=== PATIENT | female | born 1985 | race Caucasian/White ===

== ENCOUNTER 2017-01-24 06:47 | Emergency (ER) | payer SELFPAY ==
[2017-01-24 06:58] VITALS: BP 149/90; BMI 42.7
--- NOTE | 2017-01-24 07:03 | DR.EXTPAIN ---
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 Today admits to increased pain and swelliing of the knee s/p returning to work for two days. Denies erythema. Chief Complaint:: PT. C/O LEFT KNEE PAIN & SWELLING S/P FALL ON THURSDAY. - Source History Provided: Patient - Mode of arrival Mode of Arrival: Ambulatory - Timing Onset of Chief Complaint: 01/19/17 <KALANI PAUL - Last Filed: 01/24/17 07:59> PMH - PMH Past Medical History: Yes Past Medical History: Kidney Stones Past Surgical History: Yes Surgical History: - Family History History of Family Medical Conditions: No - Social History Does patient currently use any type of tobacco product: No Have you used tobacco products in the last 12 months: No Type of Tobacco Use: None Does any household member use tobacco: No Alcohol Use: None Do you use any recreational Drugs:: No Lives With: Spouse Lives Where: Home - infectious screening In the last 2 months have you had wt loss of >10#?: NO Have you had fever, night sweats or hemotysis?: No Have you traveled outside the country in the last 6 months?: No Isolation: Standard <KALANI PAUL - Last Filed: 01/24/17 07:59> ROS - Review of Systems Eyes: No Symptoms Reported ENTM: No Symptoms Reported Respiratoy: No Symptoms Reported Cardiovascular: No Symptoms Reported Gastrointestinal/Abdominal: No Symptoms Reported Genitourinary: No Symptoms Reported Neurological: No Symptoms Reported Musculoskeletal: No Symptoms Reported, Joint Pain (left knee), Knee (left knee) Integumentary: No Symptoms Reported, Bruises (left lateral malleous) Hematologic/Lymphatic: No Symptoms Reported Endocrine: No Symptoms Reported Psychiatric: No Symptoms Reported All Other Systems: Reviewed and Negative <KALANI PAUL - Last Filed: 01/24/17 07:59> PE - General Limitations: Other (pain in left knee with ambulation) General Appearance: Alert, In No Apparent Distress - Head Head Exam: Normal Inspection, Atraumatic - Eyes Eye exam: Normal Appearance, PERRL, EOMI - ENT ENT Exam: Normal Exam - Neck Neck Exam: Normal Inspection, Full ROM - Chest Chest Inspection: Normal Inspection - Respiratory Respiratory Exam: Normal Lung Sounds Bilat Respiratory Exam: Bilateral Clear to Auscultation - Cardiovascular Cardiovascular Exam: Regular Rate - Abdominal Exam Abdominal Exam: Normal Inspection, Normal Bowel Sounds Abdominal Tenderness: negative: RUQ, RLQ, LUQ, LLQ, Epigastrium, Suprapubic, Diffuse, Mild, Moderate, Severe, Other - Extremities Extremities Exam: Tenderness (left patella, lateral malleolus) - Upper Extremities Shoulder Exam: Normal Inspection Arm Exam: Normal Inspection Elbow Exam: Normal Inspection Forearm Exam: Normal Inspection, Full ROM Hand Exam: Normal Inspection Neuromotor Exam: Normal Exam Neurosensory Exam: Normal Exam Hand Tendon Exam: Flexor Digitorium Profundus (Location) Upper Ext. Vascular Exam: Capillary Refill - Lower Extremities Hip/Pelvis Exam: Normal Inspection Upper Leg Exam: Normal Inspection Knee Exam: Pain with Valgus, Laxity with Valgus Lower Leg Exam: Normal Inspection Ankle Exam: Normal Inspection Foot/Toe Exam: Normal Inspection Neurovascular/Tendon Exam: Normal Capillary Refill <KALANI PAUL - Last Filed: 01/24/17 07:59> MDM - Differential Diagnosis Differential Diagnosis: Fracture, Sprain <SHANA BHAT - Last Filed: 01/24/17 15:37> Course - Treatment Treatment: SEE ORDERS - Education/Counseling Education/Counseling: Patient, Education Educated On: Diagnosis, Needs for Follow Up <SHANA BHAT - Last Filed: 01/24/17 15:37> ROR - Labs Reviewed Laboratory Results Reviewed?: Yes Result Diagrams: 01/24/17 07:50 - XRAY XRAY Interpreted by: Radiologist XRAY Findings: REPORT DISCUSS WITH PATIENT. <SHANA BHAT - Last Filed: 01/24/17 15:37> - Labs Reviewed Laboratory: Sodium 141 mmol/L (136-145) 01/24/17 07:50 Corrected Sodium TNP 01/24/17 07:50 Potassium 3.8 mmol/L (3.5-5.1) 01/24/17 07:50 Chloride 105 mmol/L (98-107) 01/24/17 07:50 Carbon Dioxide 25.2 mmol/L (21-32) 01/24/17 07:50 BUN 16 mg/dL (7-18) 01/24/17 07:50 Creatinine 0.82 mg/dL (0.55-1.02) 01/24/17 07:50 Est GFR (MDRD) Af Amer > 60 (>60) 01/24/17 07:50 Est GFR (MDRD) Non-Af > 60 (>60) 01/24/17 07:50 Glucose 91 mg/dL (65-99) 01/24/17 07:50 Calcium 9.5 mg/dL (8.5-10.1) 01/24/17 07:50 (SHANA BHAT) <KALANI PAUL - Last Filed: 01/24/17 07:59> <SHANA BHAT - Last Filed: 01/24/17 15:37> - Diagnosis Discharge Problem: Left knee sprain Qualifiers: Encounter type: initial encounter Involved ligament of knee: unspecified ligament Qualified Code(s): S83.92XA - Sprain of unspecified site of left knee, initial encounter - Discharge Plan Disposition: 01 HOME, SELF-CARE Condition: Stable Prescriptions: Ibuprofen [Motrin Tab 800 mg] 800 mg PO DAILY PRN #20 tab PRN Reason: Pain/Inflammation Tramadol HCl 50 mg PO Q8H PRN #15 tab PRN Reason: Pain - Follow ups/Referrals Follow ups/Referrals: NFD,None [Primary Care Provider] - 3 days JASMINA JI [STAFF PHYSICIAN] - 3 days - Instructions Instructions: Knee Sprain, [id number] Additional Instructions: RETURN TO ED IF WORSE.
[2017-01-24] MEDS ORDERED: NS 100 ML IV 100 ML IV ONE (07:36)
[2017-01-24 08:07] LABS: BLOOD UREA NITROGEN 16 mg/dL (7-18); CALCIUM 9.5 mg/dL (8.5-10.1); CARBON DIOXIDE 25.2 mmol/L (21-32); CHLORIDE 105 mmol/L (98-107); CREATININE 0.82 mg/dL (0.55-1.02); GLUCOSE 91 mg/dL (65-99); SODIUM 141 mmol/L (136-145); eGFR BLACK RACES > 60 (>60); eGFR NON BLACK RACES > 60 (>60)
--- NOTE | 2017-01-24 09:59 | CT ---
History: Left knee pain, history of trauma Study: CT of the left knee prior to and after intravenous contrast Findings: The images submitted include pre contrast images is well as post contrast images including the mid 2 distal portion of the left femur and extending to the mid leg region. No fracture of the distal femur or proximal tibia is identified. No knee joint effusion is noted. There is no abnormal enhancement seen on the post-contrast examination. The superficial femoral evaristo ry popliteal artery and trifurcation vessels appear intact as visualized. No Bermudez cyst is identifie d. Impression: 1. No acute osseous abnormality is identified to suggest fracture. 2. No focal soft tissue abnormality is seen. 3. No abnormal enhancement is noted. If symptoms persist, MRI would be the exam of choice for evaluation of left knee pain. Reported By:
== END 2017-01-24 10:08 | disposition home or self-care (01) ==
LOC: ER 06:47
DX: S83.92XA Sprain of unspecified site of left knee, initial encounter (principal); W01.198A Fall on same level from slipping, tripping and stumbling with subsequent striking against other object, initial encounter; Y92.512 Supermarket, store or market as the place of occurrence of the external cause
CPT/HCPCS: 29530; 36415; 73701; 80048; 96365; 99283; A4222

== ENCOUNTER 2017-11-18 02:42 | Emergency (ER) | payer SELFPAY ==
[2017-11-18 02:47] VITALS: BP 144/90; BMI 43.5
[2017-11-18] MEDS ORDERED: TORADOL 30 MG VIAL IVP ONE (02:50)
[2017-11-18] MEDS ORDERED: NS 1000 ML 1,000 ML IV ONE (02:50)
[2017-11-18] MEDS ORDERED: NS 1000 ML 1,000 ML ONE (02:51)
[2017-11-18] MEDS ORDERED: TORADOL 30 MG VIAL ONE (02:52)
[2017-11-18 03:37] LABS: BILIRUBIN,URINE NEGATIVE (NEGATIVE); BLOOD/HEMOGLOBIN,URINE 5+ (NEGATIVE); GLUCOSE, URINE NEGATIVE (NEGATIVE); KETONES,URINE NEGATIVE (NEGATIVE); LEUKOCYTE ESTERASE ,URINE 3+ (NEGATIVE); NITRITES,URINE POSITIVE (NEGATIVE); PROTEIN,URINE 2+ (NEGATIVE); UROBILINOGEN,URINE NORMAL (NORMAL)
[2017-11-18 03:57] LABS: APPEARANCE,URINE CLOUDY (CLEAR); COLOR,URINE YELLOW (YELLOW)
[2017-11-18 03:58] LABS: BACTERIA,URINE 3+ /HPF (NEGATIVE); RBC,URINE 30-50 /HPF (NONE SEEN); SQUAMOUS EPITHELIAL CELL,UR MODERATE /HPF (NEGATIVE)
--- NOTE | 2017-11-18 04:56 | DR.GENAD ---
HPI - PCP Primary Care Physician: renard - HPI Comment HPI Comment: PATIENT IT IS A POSSIBLE KIDNEY STONE, NO DYSURIA OR HEMATURIA. NO FEVER. - Complaint/Symptoms Chief Complaint Doctors Comments: ABDOMINAL PAIN, RIGHT FLANK PAIN NOTED TODAY. Chief Complaint:: possible kidney stones right flank pain - Nurses notes reviewed Nurses Notes Review: Yes - Source History Provided: Patient - Mode of Arrival Mode of Arrival: Ambulatory - Timing Onset of Chief Complaint: 11/18/17 Came on: Suddenly - Duration Duration: Constant Duration: Days - Severity Severity: Moderate PMH - PMH Past Medical History: Yes Past Medical History: Kidney Stones Past Surgical History: Yes Surgical History: - Family History History of Family Medical Conditions: No - Social History Does patient currently use any type of tobacco product: No Have you used tobacco products in the last 12 months: No Type of Tobacco Use: None Does any household member use tobacco: No Alcohol Use: None Do you use any recreational Drugs:: No Lives With: Family Lives Where: Home - infectious screening In the last 2 months have you had wt loss of >10#?: NO Have you had fever, night sweats or hemotysis?: No Have you traveled outside the country in the last 6 months?: No Isolation: Standard ROS - Review of Systems Constitutional: Weakness, Fatigue. negative: Chills, Fever Eyes: No Symptoms Reported. negative: Eye Pain, Discharge ENTM: No Symptoms Reported. negative: Ear Pain, Nose Discharge, Nose Congestion , Throat Pain Respiratoy: negative: Productive Cough, Short of Breath, Wheezing, Hemoptysis Cardiovascular: Chest Pain PE - Vital Signs Vitals: Temperature 98.3 F Pulse Rate 103 Respiratory Rate 16 Blood Pressure [Right Arm] 138/81 Blood Pressure 144/90 O2 Sat by Pulse Oximetry 100 - General Limitations: No Limitations General Appearance: Alert - Head Head Exam: Normal Inspection - Eyes Eye exam: Normal Appearance - ENT ENT Exam: Normal External Ear Exam External Ear Exam: Normal External Inspection TM/Canal Exam: Bilateral Normal Nose Exam: Normal Nose Exam Mouth Exam: Normal Inspection Throat Exam: Normal Inspection - Neck Neck Exam: Normal Inspection - Chest Chest Inspection: Symmetric Chest Wall Rise - Respiratory Respiratory Exam: Normal Lung Sounds Bilat Respiratory Exam: Bilateral Clear to Auscultation - Cardiovascular Cardiovascular Exam: Regular Rate, Normal Rhythm, Normal Heart Sounds - Abdominal Exam Abdominal Exam: Normal Bowel Sounds, Soft. negative: Tenderness - Extremities Extremities Exam: Normal Inspection - Back Back Exam: (R) CVA Tenderness, (L) CVA Tenderness - Neurologic Neurological Exam: Alert, Oriented X3 - Psychiatric Psychiatric Exam: Anxious - Skin Skin Exam: Erythema MDM - Differential Diagnosis Differential Diagnosis: UTI, KIDNEY STONE, BACK PAIN, ABD PAIN Course - Treatment Treatment: SEE ORDERS. - Education/Counseling Education/Counseling: Patient, Education Educated On: Diagnosis, Needs for Follow Up ROR - Labs Reviewed Laboratory Results Reviewed?: Yes Laboratory: 11/18/17 03:23 Urine,Clean Catch Urine Culture - Final Escherichia Coli Specimen Type Clean catch urine 11/18/17 03:23 Urine Color Yellow (YELLOW) 11/18/17 03:23 Urine Appearance Cloudy (CLEAR) 11/18/17 03:23 Urine pH 5.0 (5.0 - 8.0) 11/18/17 03:23 Ur Specific [place] 1.025 (1.000-1.030) 11/18/17 03:23 Urine Protein 2+ (NEGATIVE) 11/18/17 03:23 Urine Glucose (UA) Negative (NEGATIVE) 11/18/17 03:23 Urine Ketones Negative (NEGATIVE) 11/18/17 03:23 Urine Occult Blood 5+ (NEGATIVE) 11/18/17 03:23 Urine Nitrite Positive (NEGATIVE) 11/18/17 03:23 Urine Bilirubin Negative (NEGATIVE) 11/18/17 03:23 Urine Urobilinogen Normal (NORMAL) 11/18/17 03:23 Ur Leukocyte Esterase 3+ (NEGATIVE) 11/18/17 03:23 Urine RBC 30-50 /HPF (NONE SEEN) 11/18/17 03:23 Urine WBC 30-50 /HPF (NONE SEEN) 11/18/17 03:23 Ur Squamous Epith Cells Moderate /HPF (NEGATIVE) 11/18/17 03:23 Urine Bacteria 3+ /HPF (NEGATIVE) 11/18/17 03:23 Ur Culture Indicated? Yes/culture set up 11/18/17 03:23 - Diagnosis Discharge Problem: Kidney stone, UTI (urinary tract infection) Back pain Qualifiers: Back pain location: low back pain Chronicity: acute Back pain laterality: bilateral Sciatica presence: without sciatica Qualified Code(s): M54.5 - Low back pain - Discharge Plan Disposition: 01 HOME, SELF-CARE Condition: Stable Prescriptions: Sulfamethoxazole-Trimethoprim [BACTRIM DS TAB 800/160 MG *] 1 tab PO BID #20 tab Tramadol HCl 50 mg PO Q8H #20 tablet - Follow ups/Referrals Follow ups/Referrals: AMARA RIVERA [Primary Care Provider] - 2 days DIRK RICCI [CONSULTING PHYSICIAN] - 2 days - Instructions Instructions: Kidney Stones, [id number], Urinary Tract Infection, Adult, Easy -to-Read, Back Pain, Adult, [id number] Additional Instructions: RETURN TO ED IF WORSE.
[2017-11-18] MEDS ORDERED: ROCEPHIN 1 GM IV PREMIX 1 GM/50 ML IV.SOLN. IV ONE ×2 (04:59→05:20)
[2017-11-18] MEDS ORDERED: OFIRMEV IV 1000 MG VIAL 1,000 MG/100 ML VIAL IV ONE (05:02)
[2017-11-18] MEDS ORDERED: ZOFRAN INJ 4 MG VIAL IVP ONE (05:26)
[2017-11-18] MEDS ORDERED: MORPHINE SULFATE INJ 4 MG IVP ONE (05:26)
[2017-11-18] MEDS ORDERED: MORPHINE SULFATE INJ 4 MG ONE (05:27)
[2017-11-18] MEDS ORDERED: ZOFRAN INJ 4 MG VIAL ONE (05:27)
== END 2017-11-18 06:42 | disposition home or self-care (01) ==
LOC: ER 02:42
DX: N20.0 Calculus of kidney (principal); N39.0 Urinary tract infection, site not specified; M54.5 Low back pain; B96.20 Unspecified Escherichia coli [E. coli] as the cause of diseases classified elsewhere
CPT/HCPCS: 74176; 81001; 87086; 87088; 87186; 96365; 96374; 96375; 99282; 99283; A4222; J0696; J1885; J2270; J2405

== ENCOUNTER 2019-01-31 16:38 | Observation (INO) ==
[2019-01-31 16:42] VITALS: BMI 35.3
--- NOTE | 2019-01-31 18:34 | ED.ABDFE ---
HPI Time Seen Time Seen by Provider: 01/31/19 18:34 PCP Primary Care Physician: UTE HPI Comment HPI Comment: THIS PATIENT IS A 33 YEAR OLD FEMALE WHO IS IN THE ER WITH RIGHT UPPER QUADRANT ABDOMINAL PAIN WITH NAUSEA AND VOMITTING. PAIN STARTED LAST NIGHT AND IS GETTING WORSE. PATIENT NOT HOLDING DOWN FLUID, FOOD, OR MEDICATION. DENIES FEVER OR DYSURIA. THE PAIN LEVEL IS 7/10 CURRENTLY BUT HAS BEEN HIGHER AT HOME. PAIN IS NON RADIATING AND BECAUSE OF THE NAUSEA AND VOMITTING THERE IS NO RELIEVING FACTOR RIGHT NOW. Complaint Doctors Chief Complaint Comments: RIGHT UPPER QUADRANT PAIN THAT STARTED LAST NIGHT WITH NAUSEA AND VOMITTING. Chief Complaint:: PT. C/O RUQ PAIN. PAIN BEGAN LAST NIGHT. PT. ALSO C/O N/V. Reviewed Nurses Notes Review: Yes Source History Provided: Patient Mode of arrival Mode of Arrival: Ambulatory Timing Onset of Chief Complaint: 01/30/19 Came on: Suddenly Duration Since Onset: Constant Duration: Days Location Location: RUQ Severity Severity: Moderate Quality Quality: Sharp PMH PMH Past Medical History: Yes Past Medical History: Kidney Stones Past Surgical History: Yes Surgical History: No History, and Weight Loss Surgery Family History History of Family Medical Conditions: No Social History Does patient currently use any type of tobacco product: No Have you used tobacco products in the last 12 months: No Type of Tobacco Use: None Does any household member use tobacco: No Alcohol Use: None Do you use any recreational Drugs:: No Lives With: Spouse Lives Where: Home infectious screening In the last 2 months have you had wt loss of >10#?: NO Have you had fever, night sweats or hemotysis?: No Have you traveled outside the country in the last 6 months?: No Isolation: Standard ROS Review of Systems Constitutional: See HPI; negative Weakness and Fatigue Eyes: No Symptoms Reported and See HPI; negative Eye Pain, Discharge and Photophobia ENTM: No Symptoms Reported and See HPI; negative Ear Pain, Nose Discharge, Nose Congestion and Throat Pain Respiratoy: No Symptoms Reported and See HPI; negative Moist Cough, Short of Breath and Wheezing Cardiovascular: No Symptoms Reported and See HPI; negative Chest Pain, Edema and Palpitations Gastrointestinal/Abdominal: See HPI, Abdominal Pain, Nausea and Vomiting; neg ative Constipation and Diarrhea Genitourinary: No Symptoms Reported and See HPI; negative Dysuria, Frequency and Hematuria Neurological: See HPI and Headache; negative Weakness and Dizziness Musculoskeletal: No Symptoms Reported and See HPI Integumentary: No Symptoms Reported and See HPI; negative Change in Color, Rash and Juandice Hematologic/Lymphatic: No Symptoms Reported and See HPI Endocrine: No Symptoms Reported and See HPI Psychiatric: No Symptoms Reported and See HPI All Other Systems: Reviewed and Negative PE Vital Signs Vitals: Temperature 98.6 F Pulse Rate [Left Radial] 56 Pulse Rate 68 Respiratory Rate 18 Blood Pressure [Left Arm] 115/55 Blood Pressure [Right Arm] 161/88 Blood Pressure 115/60 O2 Sat by Pulse Oximetry 98 General Limitations: No Limitations General Appearance: Alert and In No Apparent Distress Head Head Exam: Normal Inspection Eyes Eye exam: Normal Appearance and PERRL; negative Scleral Icterus and Conjunctival Injection ENT ENT Exam: Normal Exam, Normal Oropharynx, Normal External Ear Exam and TM's Normal Bilaterally Neck Neck Exam: Normal Inspection and Trachea Midline; negative Tenderness Chest Chest Inspection: Normal Inspection and Symmetric Chest Wall Rise; negative Tenderness Respiratory Respiratory Exam: Normal Lung Sounds Bilat; negative Accessory Muscle Use, Chest Wall Tenderness and Respiratory Distress Respiratory Exam: Bilateral: Clear to Auscultation Cardiovascular Cardiovascular Exam: Regular Rate, Normal Rhythm and Normal Heart Sounds; negative Systolic Murmur and Diastolic Murmur Abdominal Exam Abdominal Exam: Normal Bowel Sounds, Soft and Tenderness Abdominal Tenderness: Diffuse and Moderate Rectal Rectal Exam: Deferred Back Back Exam: Normal Inspection Extremeties Extremities Exam: Normal Inspection External Exam: Female: Deferred : Speculum Exam (Female): Deferred : Bimanual Exam (female): Deferred Neurologic Neurological Exam: Alert and Oriented X3; negative Motor Sensory Deficit Psychiatric Psychiatric Exam: Normal Affect and Normal Mood Skin Skin Exam: Warm, Dry and Intact MDM Differential Diagnosis Differential Diagnosis- Considerations may include:: Bowel Obstruction, Cholelethiasis, Diverticular disease, Gastritus/PUD, Urinary tract infection and Urolithiasis COURSE Treatment Treatment: SEE ORDERS Education/Counseling Education/Counseling: Patient Educated On: Diagnosis ROR Labs Reviewed Laboratory Results Reviewed?: Yes Result Diagrams: 02/01/19 04:55 02/02/19 04:32 Laboratory: WBC 6.3 X10^3/uL (3.6-10.0) 02/01/19 04:55 RBC 4.07 X10^6/uL (3.5-5.4) 02/01/19 04:55 Hgb 12.5 g/dL (12.0-16.0) 02/01/19 04:55 Hct 36.8 % (36.0-47.0) 02/01/19 04:55 MCV 90.4 fL (80.0-100.0) 02/01/19 04:55 MCH 30.7 pg (27.0-34.0) 02/01/19 04:55 MCHC 34.0 g/dL (33.0-35.0) 02/01/19 04:55 RDW 13.1 % (11.6-16.5) 02/01/19 04:55 Plt Count 276 X10^3/uL (150.0-450.0) 02/01/19 04:55 MPV 8.5 fL (7.4-11.0) 02/01/19 04:55 Neut % (Auto) 62.3 % (42.0-75.0) 02/01/19 04:55 Lymph % (Auto) 30.3 % (21.0-51.0) 02/01/19 04:55 [place] % (Auto) 5.5 % (0.0-13.0) 02/01/19 04:55 Eos % (Auto) 1.3 % (0.9-2.9) 02/01/19 04:55 Baso % (Auto) 0.6 % (0.2-1.0) 02/01/19 04:55 Neut # (Auto) 3.9 x10^3/uL (2.2-4.8) 02/01/19 04:55 Lymph # (Auto) 1.9 X10^3/uL (1.3-2.9) 02/01/19 04:55 [place] # (Auto) 0.4 x10^3/uL (0.3-0.8) 02/01/19 04:55 Eos # (Auto) 0.1 x10^3/uL (0.0-0.2) 02/01/19 04:55 Baso # (Auto) 0.0 X10^3/uL (0.0-0.1) 02/01/19 04:55 Absolute Nucleated RBC 0.1 /100WBC 02/01/19 04:55 Sodium 136 mmol/L (136-145) 02/02/19 04:32 Corrected Sodium 138 mmol/L (136-145) 02/02/19 04:32 Potassium 3.8 mmol/L (3.5-5.1) 02/02/19 04:32 Chloride 103 mmol/L (98-107) 02/02/19 04:32 Carbon Dioxide 22.8 mmol/L (21-32) 02/02/19 04:32 BUN 6 mg/dL (7-18) L 02/02/19 04:32 Creatinine 0.72 mg/dL (0.55-1.02) 02/02/19 04:32 Est GFR (MDRD) Af Amer > 60 (>60) 02/02/19 04:32 Est GFR (MDRD) Non-Af > 60 (>60) 02/02/19 04:32 Glucose 195 mg/dL (65-99) H 02/02/19 04:32 Calcium 8.8 mg/dL (8.5-10.1) 02/02/19 04:32 Corrected Calcium 9.7 mg/dL (8.5-10.1) 02/02/19 04:32 Total Bilirubin 0.70 mg/dL (0.2-1.0) 02/02/19 04:32 AST 68 Units/L (15-37) H 02/02/19 04:32 ALT 86 Units/L (12-78) H 02/02/19 04:32 Alkaline Phosphatase 125 Units/L (46-116) H 02/02/19 04:32 Total Protein 6.4 g/dL (6.4-8.2) 02/02/19 04:32 Albumin 2.9 g/dL (3.4-5.0) L 02/02/19 04:32 Globulin 3.5 g/dL (2.5-4.5) 02/02/19 04:32 Albumin/Globulin Ratio 0.8 Ratio (1.1-2.1) L 02/02/19 04:32 Amylase 29 Units/L (25-115) 02/01/19 04:55 Lipase 109 Units/L (73-393) 02/01/19 04:55 HCG, Qual Negative <10 mIU/mL 02/01/19 04:55 Specimen Type Clean catch urine 01/31/19 18:33 Urine Color [place] (YELLOW) 01/31/19 18:33 Urine Appearance Clear (CLEAR) 01/31/19 18:33 Urine pH 6.0 (5.0 - 8.0) 01/31/19 18:33 Ur Specific [place] 1.015 (1.000-1.030) 01/31/19 18:33 Urine Protein 1+ (NEGATIVE) 01/31/19 18:33 Urine Glucose (UA) Negative (NEGATIVE) 01/31/19 18:33 Urine Ketones Negative (NEGATIVE) 01/31/19 18:33 Urine Occult Blood 1+ (NEGATIVE) 01/31/19 18:33 Urine Nitrite Negative (NEGATIVE) 01/31/19 18:33 Urine Bilirubin 2+ (NEGATIVE) 01/31/19 18:33 Urine Urobilinogen 3+ (NORMAL) 01/31/19 18:33 Ur Leukocyte Esterase 1+ (NEGATIVE) 01/31/19 18:33 Urine RBC 0-2 /HPF (NONE SEEN) 01/31/19 18:33 Urine WBC 0-2 /HPF (NONE SEEN) 01/31/19 18:33 Ur Squamous Epith Cells Moderate /HPF (NEGATIVE) 01/31/19 18:33 Urine Bacteria 2+ /HPF (NEGATIVE) 01/31/19 18:33 Ur Culture Indicated? No/not indicated 01/31/19 18:33 Tissue Pathology To follow 02/01/19 16:51 XRAY XRAY Interpreted by: Radiologist XRAY Findings: ULTRASOUND GALLBLADDER REPORT NOTED AND DISCUSSED WITH PATIENT Opioid Opioid Risk Tool Age (Lobo box if 16-45): Yes Total: 1 Total Score Risk Category: Low Risk Copyright: Teofilo TRINH predicting aberrant behaviors Management Prescription drug monitoring program results: PDMP was not reviewed Diagnosis Discharge Problem: Abdominal pain, Disease of gallbladder Instructions Instructions: Laparoscopic Cholecystectomy, Care After Pain Medicine Instructions, [id number] Forms: Excuse From Work or School Patient Portal
[2019-01-31 18:49] LABS: BILIRUBIN,URINE 2+ (NEGATIVE); BLOOD/HEMOGLOBIN,URINE 1+ (NEGATIVE); GLUCOSE, URINE NEGATIVE (NEGATIVE); KETONES,URINE NEGATIVE (NEGATIVE); LEUKOCYTE ESTERASE ,URINE 1+ (NEGATIVE); NITRITES,URINE NEGATIVE (NEGATIVE); PROTEIN,URINE 1+ (NEGATIVE); UROBILINOGEN,URINE 3+ (NORMAL)
[2019-01-31 18:56] LABS: BASOPHILS % (AUTO) 0.6 % (0.2-1.0); EOSINOPHILS # (AUTO) 0.1 x10^3/uL (0.0-0.2); EOSINOPHILS % (AUTO) 0.8 % (0.9-2.9); HEMATOCRIT 37.2 % (36.0-47.0); HEMOGLOBIN 12.7 g/dL (12.0-16.0); LYMPHOCYTES # (AUTO) 1.4 X10^3/uL (1.3-2.9); LYMPHOCYTES % (AUTO) 18.9 % (21.0-51.0); MEAN CORPUSCULAR HEMOGLOBIN 30.6 pg (27.0-34.0); MEAN CORPUSCULAR HGB CONC 34.1 g/dL (33.0-35.0); MEAN CORPUSCULAR VOLUME 89.6 fL (80.0-100.0); MEAN PLATELET VOLUME 7.9 fL (7.4-11.0); MONOCYTES # (AUTO) 0.3 x10^3/uL (0.3-0.8); MONOCYTES % (AUTO) 4.3 % (0.0-13.0); NEUTROPHILS # (AUTO) 5.4 x10^3/uL (2.2-4.8); NEUTROPHILS % (AUTO) 75.4 % (42.0-75.0); PLATELET COUNT 309 X10^3/uL (150.0-450.0); RED BLOOD COUNT 4.15 X10^6/uL (3.5-5.4); WHITE BLOOD COUNT 7.2 X10^3/uL (3.6-10.0)
[2019-01-31 18:59] LABS: APPEARANCE,URINE CLEAR (CLEAR); COLOR,URINE AMBER (YELLOW)
[2019-01-31 19:00] LABS: BACTERIA,URINE 2+ /HPF (NEGATIVE); RBC,URINE 0-2 /HPF (NONE SEEN); SQUAMOUS EPITHELIAL CELL,UR MODERATE /HPF (NEGATIVE)
[2019-01-31 19:11] LABS: ALANINE AMINOTRANSFERASE 111 Units/L (12-78); ALBUMIN 3.8 g/dL (3.4-5.0); ALKALINE PHOSPHATASE 144 Units/L (46-116); AMYLASE 32 Units/L (25-115); ASPARTATE AMINO TRANSFERASE 143 Units/L (15-37); CALCIUM 9.6 mg/dL (8.5-10.1); CARBON DIOXIDE 27.7 mmol/L (21-32); CHLORIDE 103 mmol/L (98-107); CREATININE 0.95 mg/dL (0.55-1.02); LIPASE 167 Units/L (73-393); SODIUM 139 mmol/L (136-145); TOTAL PROTEIN 7.4 g/dL (6.4-8.2); eGFR NON BLACK RACES > 60 (>60)
[2019-01-31] MEDS ORDERED: NS 1000 ML 1,000 ML ONE (19:14)
[2019-01-31] MEDS ORDERED: DEMEROL INJ ONE (19:15)
[2019-01-31] MEDS ORDERED: ZOFRAN INJ 4 MG VIAL ONE ×2 (19:15→21:27)
[2019-01-31 19:24] LABS: BLOOD UREA NITROGEN 10 mg/dL (7-18)
[2019-01-31] MEDS ORDERED: DEMEROL INJ IVP ONE (19:31)
[2019-01-31] MEDS ORDERED: ZOFRAN INJ 4 MG VIAL IVP ONE ×2 (19:31→20:41)
[2019-01-31] MEDS ORDERED: NS 1000 ML 1,000 ML IV ONE (19:31)
[2019-01-31] MEDS ORDERED: DILAUDID INJ IVP ONE (20:43)
[2019-01-31] MEDS ORDERED: DILAUDID INJ ONE (21:27)
--- NOTE | 2019-01-31 23:01 | US ---
Gallbladder sonogram Indication:Right upper quadrant pain Comparison: None available Technique: Multiple vásquez scale and color flow Doppler images of the right upper quadrant were obtained. Findings: There is questionable layering debris/sludge within the gallbladder lumen. No gallstone is identified. Gallbladder wall thickness is within normal limits. No pericholecystic fluid. No reported sonographic Jay sign. The common bile duct measures 3 mm. No intrahepatic bile duct dilatation identified. No focal hepatic lesion or abnormal color Doppler flow within the liver. IMPRESSION: Questionable gallbladder sludge without cholelithiasis or sonographic evidence of acute cholecystitis. Reported By:
[2019-02-01] MEDS ORDERED: DILAUDID INJ IVP PRN ×3 (00:48→17:34)
[2019-02-01] MEDS ORDERED: ZOFRAN INJ 4 MG VIAL IVP PRN ×2 (00:49→17:34)
[2019-02-01] MEDS ORDERED: BENADRYL INJ 50 MG VIAL IVP ONE (01:02)
[2019-02-01] MEDS ORDERED: BENADRYL INJ 50 MG VIAL ONE (01:03)
[2019-02-01] MEDS: NS 1000 ML 1,000 ML IV SCH ×3 (01:32→16:28)
[2019-02-01 05:32] LABS: BASOPHILS % (AUTO) 0.6 % (0.2-1.0); EOSINOPHILS # (AUTO) 0.1 x10^3/uL (0.0-0.2); EOSINOPHILS % (AUTO) 1.3 % (0.9-2.9); HEMATOCRIT 36.8 % (36.0-47.0); HEMOGLOBIN 12.5 g/dL (12.0-16.0); LYMPHOCYTES # (AUTO) 1.9 X10^3/uL (1.3-2.9); LYMPHOCYTES % (AUTO) 30.3 % (21.0-51.0); MEAN CORPUSCULAR HEMOGLOBIN 30.7 pg (27.0-34.0); MEAN CORPUSCULAR VOLUME 90.4 fL (80.0-100.0); MEAN PLATELET VOLUME 8.5 fL (7.4-11.0); MONOCYTES # (AUTO) 0.4 x10^3/uL (0.3-0.8); MONOCYTES % (AUTO) 5.5 % (0.0-13.0); NEUTROPHILS # (AUTO) 3.9 x10^3/uL (2.2-4.8); NEUTROPHILS % (AUTO) 62.3 % (42.0-75.0); PLATELET COUNT 276 X10^3/uL (150.0-450.0); RED BLOOD COUNT 4.07 X10^6/uL (3.5-5.4); RED CELL DISTRIBUTION WIDTH 13.1 % (11.6-16.5); WHITE BLOOD COUNT 6.3 X10^3/uL (3.6-10.0)
[2019-02-01 05:41] LABS: ALANINE AMINOTRANSFERASE 123 Units/L (12-78); ALBUMIN 3.5 g/dL (3.4-5.0); ALKALINE PHOSPHATASE 148 Units/L (46-116); ASPARTATE AMINO TRANSFERASE 135 Units/L (15-37); BLOOD UREA NITROGEN 3 mg/dL (7-18); CALCIUM 9.4 mg/dL (8.5-10.1); CARBON DIOXIDE 24.2 mmol/L (21-32); CHLORIDE 105 mmol/L (98-107); CREATININE 0.83 mg/dL (0.55-1.02); LIPASE 109 Units/L (73-393); SODIUM 139 mmol/L (136-145); TOTAL PROTEIN 7.2 g/dL (6.4-8.2); eGFR NON BLACK RACES > 60 (>60)
[2019-02-01] MEDS ORDERED: NS IRRIGATION 3000 ML ONE (09:29)
[2019-02-01] MEDS ORDERED: STERILE WATER IRRIGATION ONE (09:29)
[2019-02-01] MEDS ORDERED: LOPRESSOR TAB 50 MG ONE (10:12)
[2019-02-01] MEDS ORDERED: TORADOL 30 MG VIAL ONE ×2 (10:12→11:06)
[2019-02-01] MEDS: TOPROL XL PO SCH (10:21)
[2019-02-01] MEDS: TORADOL 15 MG VIAL IVP PRN ×2 (10:22→21:37)
[2019-02-01] MEDS ORDERED: DIPRIVAN VIAL ONE (11:06)
[2019-02-01] MEDS ORDERED: ZOFRAN INJ 4 MG VIAL ONE ×2 (11:06→17:51)
[2019-02-01] MEDS ORDERED: NEOSTIGMINE INJ ONE (11:06)
[2019-02-01] MEDS ORDERED: VERSED ONE (11:06)
[2019-02-01] MEDS ORDERED: QUELICIN (OR ANECTINE) ONE (11:06)
[2019-02-01] MEDS ORDERED: NORCURON INJ 10 MG VIAL ONE (11:06)
[2019-02-01] MEDS ORDERED: ROBINUL ONE (11:06)
[2019-02-01] MEDS ORDERED: LR 1000 ML IV 1,000 ML ONE (15:37)
[2019-02-01 15:45] LABS: SERUM PREGNANCY TEST, QUAL NEGATIVE <10 mIU/mL
[2019-02-01] MEDS ORDERED: FENTANYL INJ 250 mcg ONE (15:51)
[2019-02-01] MEDS ORDERED: ANCEF 1 GRAM IV PREMIX* 1 G/50 ML BAG IV ONE ×2 (16:06→16:10)
[2019-02-01] MEDS ORDERED: DECADRON INJ ONE ×2 (16:39)
[2019-02-01] MEDS ORDERED: BACTROBAN TOPICAL OINT ONE (17:15)
[2019-02-01] MEDS ORDERED: REGLAN INJ 10 MG VIAL IVP PRN (17:34)
[2019-02-01] MEDS ORDERED: BENADRYL INJ 50 MG VIAL IVP PRN (17:34)
[2019-02-01] MEDS ORDERED: PHENERGAN INJ 25 MG IM PRN (17:34)
--- NOTE | 2019-02-01 17:37 | OR.GENERIC ---
Post-Op Note Generic - Post-Op Note Operative Report: lap ladi . finding : acute cholecystitis with distended GB with small stones and sludge . on clear liquid and ATB for 24 h. EBL 15to 20 cc.
[2019-02-01] MEDS ORDERED: REGLAN INJ 10 MG VIAL ONE (17:53)
[2019-02-01] MEDS ORDERED: PHENERGAN INJ 25 MG IM ONE (18:15)
[2019-02-01] MEDS: ANCEF VIAL 1 GRAM IVP SCH (21:35)
[2019-02-02] MEDS: D5 1/2 NS 1000 ML 1,000 ML IV SCH ×3 (01:59→09:37)
[2019-02-02] MEDS: ANCEF VIAL 1 GRAM IVP SCH (05:26)
[2019-02-02 05:57] LABS: ALANINE AMINOTRANSFERASE 86 Units/L (12-78); ALBUMIN 2.9 g/dL (3.4-5.0); ALKALINE PHOSPHATASE 125 Units/L (46-116); ASPARTATE AMINO TRANSFERASE 68 Units/L (15-37); BLOOD UREA NITROGEN 6 mg/dL (7-18); CALCIUM 8.8 mg/dL (8.5-10.1); CARBON DIOXIDE 22.8 mmol/L (21-32); CHLORIDE 103 mmol/L (98-107); COR CA(FOR HYPOALB) 9.7 mg/dL (8.5-10.1); COR NA(FOR HYPERGLY) 138 mmol/L (136-145); CREATININE 0.72 mg/dL (0.55-1.02); SODIUM 136 mmol/L (136-145); TOTAL PROTEIN 6.4 g/dL (6.4-8.2); eGFR NON BLACK RACES > 60 (>60)
[2019-02-02] MEDS: TORADOL 15 MG VIAL IVP PRN (08:15)
[2019-02-02 09:15] VITALS: BP 115/55
[2019-02-02] MEDS: NS 1000 ML 1,000 ML IV SCH (09:39)
[2019-02-02] MEDS: TOPROL XL PO SCH (10:36)
== END 2019-02-02 11:10 | disposition home or self-care (01) ==
LOC: ER 16:38 → MED/SURG 16:38
PROVIDERS: ADMIT Obstetrics & Gynecology Obstetrics; ATTEND Obstetrics & Gynecology Obstetrics
DX: K66.0 Peritoneal adhesions (postprocedural) (postinfection); K85.90 Acute pancreatitis without necrosis or infection, unspecified; K81.0 Acute cholecystitis; R51 Headache
CPT/HCPCS: 36415; 76705; 80053; 81001; 82150; 83690; 84703; 85025; 96365; 96367; 96374; 96375; 99284; A4216; A4217; A4222; A9537; G0378; J0330; J0690; J1100; J1170; J1200; J1885; J2175; J2250; J2405; J2550; J2704; J2710; J2765; J3010; J3490; J7030; J7120; S5010